=== PATIENT | male | born 1985 | race Caucasian/White ===

== ENCOUNTER 2020-06-22 11:46 | Inpatient (IN) | payer OTHER ==
[~2020-06-22] VITALS: Ht 177.8 cm; Wt 99.8 kg
[2020-06-22] MEDS ORDERED: SODIUM CHLORIDE 0.9% 1,000 ML IVB ONE (12:24)
[2020-06-22 13:12] LABS: Basophils # (auto) 0 10 ^3/uL (0-0.2); Basophils % (auto) 0.2 % (0.0-2.0); Eosinophils # (auto) 0 10 ^3/uL (0-0.8); Hematocrit 45.1 % (41.0-53.0); Hemoglobin 15.4 g/dL (13.5-17.5); Lymphocytes % (auto) 13.9 % (10.0-50.0); Mean Corpuscular Hgb Conc. 34.1 g/dL (32.0-36.0); Monocytes # (auto) 0.6 10 ^3/uL (0-1.3); Monocytes % (auto) 7.9 % (0.0-12.0); Neutrophils # (auto) 5.7 10 ^3/uL (1.6-8.6); Platelet Count (auto) 199 10^3/uL (140-450); Red Cell Distribution Width 14.2 % (11.8-14.3); White Blood Cell 7.3 10^3/uL (4.4-10.8)
[2020-06-22] MEDS ORDERED: ASCORBIC ACID 500 MG TAB PO ONE (13:15)
[2020-06-22] MEDS ORDERED: ZINC SULFATE 220mg CAP or TAB PO ONE (13:15)
[2020-06-22] MEDS ORDERED: DOXYCYCLINE 100MG/250ML 250 ML IV ONE (13:15)
[2020-06-22] MEDS ORDERED: DexAMETHasone 4 MG TAB PO ONE (13:15)
[2020-06-22 13:28] LABS: INR 1.01 (0.9-1.15); Partial Thromboplastin Time 28.4 sec (23.0-31.2)
[2020-06-22 13:30] LABS: Albumin 3.8 g/dL (3.4-5.0); Calcium 8.6 mg/dL (8.5-10.1); Magnesium 2.6 mg/dL (1.6-2.6); Potassium 3.4 mmol/L (3.5-5.1)
[2020-06-22 13:34] LABS: BUN/Creatinine Ratio 11.9; Bilirubin, Total 0.6 mg/dL (0.2-1.0)
[2020-06-22] MEDS: ALBUTEROL SULF HFA 90MCG INH 200DOSE IN SCH ×2 (14:00→23:05)
[2020-06-22] MEDS ORDERED: POTASSIUM EFFERVESENT TAB 25 MEQ GT ONE (14:00)
[2020-06-22] MEDS ORDERED: ACETAMINOPHEN 500 MG TAB PO PRN (14:00)
[2020-06-22] MEDS ORDERED: ONDANSETRON HCL 4 MG/2 ML VIAL IV PRN (14:00)
[2020-06-22] MEDS: DOXYCYCLINE 100MG/250ML 250 ML IV SCH (14:00)
[2020-06-22] MEDS ORDERED: DEXTROSE (50%) 50ML SYRG IV PRN (14:00)
[2020-06-22] MEDS ORDERED: NITROGLYCERIN 0.4 MG SL TAB SL PRN (14:00)
[2020-06-22] MEDS ORDERED: traMADol HCL 50 MG TAB PO PRN (14:00)
[2020-06-22] MEDS ORDERED: MORPHINE SULF INJ 2 MG/ML SYRINGE 1ML IV PRN (14:00)
[2020-06-22] MEDS: SODIUM CHLORIDE 0.9% 1,000 ML IV SCH (14:14)
[2020-06-22] MEDS ORDERED: ACCU-CHEK COMFORT CURVE STRIP VI SCH (17:00)
[2020-06-22 17:03] VITALS: BP 127/72
--- NOTE | 2020-06-22 19:20 | NUR ---
Opening Shift Note Assumed care of patient, awake and alert. No S/S of distress/SOB or pain. Instructed on POC and to call for assist PRN, will continue to monitor for changes Q1hr and PRN.
[2020-06-22 20:51] VITALS: BP 131/54
[2020-06-22 22:22] VITALS: BP 131/54
[2020-06-23] MEDS: DOXYCYCLINE 100MG/250ML 250 ML IV SCH ×2 (02:32→14:59)
[2020-06-23] MEDS: SODIUM CHLORIDE 0.9% 1,000 ML IV SCH (04:05)
[2020-06-23 05:00] VITALS: BP 120/64
--- NOTE | 2020-06-23 06:55 | NUR ---
closing shift notes pt has no s/s of distress or pain at this time will endorse care to day shift RN
[2020-06-23 07:16] LABS: Albumin 3.2 g/dL (3.4-5.0); Calcium 8.1 mg/dL (8.5-10.1); Potassium 3.8 mmol/L (3.5-5.1)
[2020-06-23 07:18] LABS: Basophils # (auto) 0 10 ^3/uL (0-0.2); Basophils % (auto) 0.2 % (0.0-2.0); Eosinophils # (auto) 0 10 ^3/uL (0-0.8); Hematocrit 39.4 % (41.0-53.0); Hemoglobin 13.5 g/dL (13.5-17.5); Lymphocytes # (auto) 0.8 10 ^3/uL (0.4-5.4); Lymphocytes % (auto) 17.9 % (10.0-50.0); Mean Corpuscular Hemoglobin 27.9 pg (28.0-32.0); Mean Corpuscular Hgb Conc. 34.3 g/dL (32.0-36.0); Mean Corpuscular Volume 81.5 fL (80.0-100.0); Monocytes # (auto) 0.5 10 ^3/uL (0-1.3); Neutrophils # (auto) 3.3 10 ^3/uL (1.6-8.6); Neutrophils % (auto) 70.9 % (37.0-80.0); Nucleated Red Blood Cells % 0.1 %; Platelet Count (auto) 204 10^3/uL (140-450); Red Blood Cells 4.83 10^6/uL (4.5-5.90); Red Cell Distribution Width 14.1 % (11.8-14.3); White Blood Cell 4.7 10^3/uL (4.4-10.8)
[2020-06-23 07:20] LABS: Bilirubin, Total 0.5 mg/dL (0.2-1.0); Total Protein 6.8 g/dL (6.4-8.2)
--- NOTE | 2020-06-23 07:35 | NUR ---
Opening Shift Note Assumed care of patient, awake and alert. No S/S of distress, SOB with activity denies pain. Instructed on POC and to call for assist PRN, will continue to monitor for changes Q1hr and PRN.
[2020-06-23] MEDS: ALBUTEROL SULF HFA 90MCG INH 200DOSE IN SCH ×2 (07:37→15:04)
[2020-06-23 09:00] VITALS: BP 125/71
[2020-06-23] MEDS ORDERED: cefTRIAXone 1GM/50ML D5W 50 ML IV SCH (09:00)
[2020-06-23] MEDS ORDERED: CHOLECALCIFEROL (VITD3) 2,000 UNIT CAP PO SCH (10:00)
[2020-06-23] MEDS ORDERED: DexAMETHasone SOD PHOS 10MG/1ML VIAL INJ IV SCH (10:00)
[2020-06-23] MEDS ORDERED: ENOXAPARIN SOD 40 MG/0.4 ML SYRINGE SC SCH (10:00)
[2020-06-23] MEDS ORDERED: ZINC SULFATE 220mg CAP or TAB PO SCH (10:00)
[2020-06-23] MEDS ORDERED: ASCORBIC ACID 1,000 MG TAB PO SCH (10:00)
[2020-06-23 12:00] VITALS: BP 114/69
[2020-06-23] MEDS ORDERED: ASCO10003 PO (14:14)
[2020-06-23] MEDS ORDERED: ZINCCAP PO (14:14)
[2020-06-23] MEDS ORDERED: ALBUAER3 IN (14:14)
[2020-06-23] MEDS ORDERED: ACE325T PO (14:14)
[2020-06-23] MEDS ORDERED: DEXA6TAB6 PO (14:14)
[2020-06-23] MEDS ORDERED: CHOL1CAP47 PO (14:14)
[2020-06-23] MEDS ORDERED: AZIT500T66 PO (14:14)
--- NOTE | 2020-06-23 17:02 | NUR ---
Discharge instructions given as ordered. Encourage to follow up with PMD as instructed. All questions and concerns addressed. Patient verbalized understanding. Medication reconciliation form completed and copy given to patient. Prescription medications deliveried. . IV removed with catheter intact, pressure dressing applied. Telemetry unit returned to ICU. Patient taken to vehicle via wheelchair with all personal belongings, accompanied by staff to family member. No distress noted at time of departure.
== END 2020-06-23 17:00 | disposition home or self-care (01) | DRG 177 ==
LOC: ER 11:46 → TELE 11:47 → TELE-EAST 16:48
PROVIDERS: ADMIT Internal Medicine; ATTEND Internal Medicine
DX: U07.1 COVID-19 (principal); J12.89 Other viral pneumonia; R06.03 Acute respiratory distress; E87.6 Hypokalemia; R73.9 Hyperglycemia, unspecified; E66.3 Overweight; E66.01 Morbid (severe) obesity due to excess calories; Z68.31 Body mass index [BMI] 31.0-31.9, adult; Z82.49 Family history of ischemic heart disease and other diseases of the circulatory system
CPT/HCPCS: 36415; 71045; 80053; 83036; 83605; 83735; 85025; 85610; 85730; 87040; 87426; 94640; 96361; 96365; G0378; J0696; J1100; J3490